=== PATIENT | male | born 1955 ===

== ENCOUNTER 2017-03-25 10:43 | Emergency (ER) | payer OTHER ==
[2017-03-25 11:56] LABS: BASOPHILS % 0.4 (0.0-1.5); EOSINOPHILS % 2.8 % (0.0-6.8); MEAN CORPUSCULAR HEMOGLOBIN 30.8 pg (28.0-34.0); MEAN CORPUSCULAR VOLUME 91.5 fl (80.0-100.0); MONOCYTES % 2.8 % (0.0-11.0); NEUTROPHILS # 11.6 # k/uL (1.4-7.7)
[2017-03-25 12:12] LABS: eGFR (African) > 60; eGFR (Non-African) > 60
--- NOTE | 2017-03-25 12:16 | ED Physician Documentation ---
Upper Respiratory Symptoms - HISTORIAN Historian: patient - HPI Chief Complaint: Cough/ Upper Respiratory Onset: days ago Associated Symptoms: fever, chills, runny nose, productive cough, shortness of breath (when lying down) Further Comments: yes (61 year old male patient presents with complaint of cough and increasing difficulty breathing. Patient reports symptoms started 3 days and have become worse. Reports exposure to influenza.) - ROS CONST/EYES: weakness CVS/RESP: shortness of breath. denies: chest pain, palpitations LYMPH: denies: leg swelling, rash, ankle swelling GI/: none NEURO/PSYCH: denies: fainting, dizziness, confusion MS/SKIN: denies: joint pain, muscle aches, rash - PAST HX Lung Disease: none PE Risk Factors: hypertension, other (HLD, gout, BPH) Allergies/Adverse Reactions: Allergies Allergy/AdvReac Type Severity Reaction Status Date / Time No Known Allergies Allergy Verified 03/25/17 13:03 Home Medications: Ambulatory Orders Medication Instructions Recorded Albuterol Sulfate [Proair HFA] 1 inh IH Q4H PRN #1 hfa.aer.ad 03/25/17 Azithromycin [Zithromax] 250 mg PO DAILY #6 tablet 03/25/17 Finasteride [Proscar] 5 mg PO DAILY 03/25/17 Pravastatin Sodium [Pravastatin 40 mg PO DAILY 03/25/17 Sodium] predniSONE [Deltasone] 30 mg PO DAILY #12 tablet 03/25/17 - SOCIAL HX Smoking History: quit greater than 1 year - FAMILY HX Family History: denies: none - VITAL SIGNS Vital Signs: Vital Signs Temp Pulse Resp BP Pulse Ox 97.6 F 76 20 122/87 96 03/25/17 11:00 03/25/17 13:00 03/25/17 11:00 03/25/17 11:00 03/25/17 13:00 - REVIEWED ASSESSMENTS Nursing Assessment Reviewed: Yes Vitals Reviewed: Yes Progress - Progress Progress: 1210 Reviewed chest xray results with patient and recommendations by Radiologist for CT. Patient agrees to plan of care. reviewed CT result with patient, reassurance given and questions answered. Will discharge on antibiotic due to elevated WBC count and productive cough with yellow sputum. Short burst of prednisone and prn proair. - EKG/XRAY/CT EKG: rhythm (SR, rate 67, no acute changes) ED Results Lab/Radiology - Lab Results Lab Results: Lab Results 03/25/17 03/25/17 03/25/17 11:50 11:50 11:50 WBC RBC Hgb Hct MCV MCH MCHC RDW Plt Count Neut % (Auto) Lymph % (Auto) Davison % (Auto) Eos % (Auto) Baso % (Auto) Neut # (Auto) Lymph # (Auto) Davison # (Auto) Eos # (Auto) Baso # (Auto) Reactive Lymphs % Reactive Lymphs # PT 10.4 Seconds Seconds (9.4-11.6) INR 0.99 (0.9-1.2) APTT 22.7 Seconds L Seconds (24.5-32.8) Sodium 138 mmol/L mmol/L (136-145) Potassium 4.2 mmol/L mmol/L (3.5-5.1) Chloride 100 mmol/L mmol/L (98-107) Carbon Dioxide 30 mmol/L mmol/L (22-30) BUN 18 mg/dL mg/dL (9-20) Creatinine 0.90 mg/dL mg/dL (0.66-1.25) Est GFR ( Amer) > 60 (60 - ) Est GFR (Non-Af Amer) > 60 (60 - ) Glucose 95 mg/dL mg/dL (74-106) Calcium 8.8 mg/dL mg/dL (8.4-10.2) Total Bilirubin 0.4 mg/dL mg/dL (0.2-1.3) AST 25 U/L U/L (15-46) ALT 41 U/L U/L (13-69) Alkaline Phosphatase 101 U/L U/L (38-126) Total Protein 7.4 g/dL g/dL (6.3-8.2) Albumin 3.8 g/dL g/dL (3.5-5.0) Influenza Type A Ag Negative (NEGATIVE) Influenza Type B Ag Negative (NEGATIVE) 03/25/17 11:50 WBC 14.00 K/ul H K/ul (4.00-12.00) RBC 4.88 M/ul M/ul (3.90-5.20) Hgb 15.0 g/dL g/dL (12.0-18.0) Hct 44.7 % % (37.0-53.0) MCV 91.5 fl fl (80.0-100.0) MCH 30.8 pg pg (28.0-34.0) MCHC 33.7 g/dL g/dL (30.0-36.0) RDW 12.6 % % (11.3-14.3) Plt Count 205 K/mm3 K/mm3 (130-400) Neut % (Auto) 83.1 % H % (39.0-79.0) Lymph % (Auto) 10.3 % L % (16.0-50.0) Davison % (Auto) 2.8 % % (0.0-11.0) Eos % (Auto) 2.8 % % (0.0-6.8) Baso % (Auto) 0.4 (0.0-1.5) Neut # (Auto) 11.6 # k/uL H # k/uL (1.4-7.7) Lymph # (Auto) 1.4 # k/uL # k/uL (0.6-4.0) Davison # (Auto) 0.4 # k/uL # k/uL (0.0-0.9) Eos # (Auto) 0.4 # k/uL # k/uL (0.0-0.6) Baso # (Auto) 0.1 # k/uL # k/uL (0.0-0.5) Reactive Lymphs % 0.6 % % (0.0-5.0) Reactive Lymphs # 0.1 # k/uL # k/uL (0.0-0.8) PT INR APTT Sodium Potassium Chloride Carbon Dioxide BUN Creatinine Est GFR ( Amer) Est GFR (Non-Af Amer) Glucose Calcium Total Bilirubin AST ALT Alkaline Phosphatase Total Protein Albumin Influenza Type A Ag Influenza Type B Ag - Radiology Radiology Impressions: Chest 2 views History: Cough and wheezing Findings: Right mid mediastinal convexity observed on the PA film suggests ascending aortic aneurysm versus tortuosity. A mass lesion cannot be excluded. There is no confluent infiltrate or pleural effusion. Heart size and pulmonary vascularity are normal. Impression: A right sided mediastinal convexity. Differential includes aortic aneurysm, aortic tortuosity, and mass. Recommend STANDARD contrast enhanced chest CT. Electronically signed on Mar 25, 2017 12:05:26 PM A/C TECHNICIAN by: Isma Mehard Computed tomography of the chest with contrast History: Abnormal mediastinum on chest radiograph. Cough and wheezing. Findings: Transverse chest sections are obtained after 90 mL intravenous omnipaque 350. The right pulmonary artery is slightly enlarged. The thoracic aorta is normal. Calcified subcarinal granulomas are observed. Heart size is normal. There is no evidence of central pulmonary embolism. The lungs are clear. No pleural effusions are observed. There is no evidence of mass or lymphadenopathy. Upper abdomen sections reveal a few liver cysts. Impression: 1. Mildly enlarged right pulmonary artery and calcified subcarinal granulomas. Otherwise normal mediastinum. 2. Liver cysts. 3. Clear lungs. - Orders Orders: ED Orders Category Date Time Status Continuous EKG monitoring Q30M Care 03/25/17 11:43 Active Continuous Pulse Oximetry Q30M Care 03/25/17 11:[address] IV Lock 1T Care 03/25/17 11:43 Active CHEST 2 VIEW [CHEST P.A.&LAT 2 VIEWS] [RAD] Stat Exams 03/25/[address] CHEST W/ CONTRAST Stat Exams 03/25/17 Ordered BLOOD CULTURE Stat Lab 03/25/17 Ordered CBC/PLATELET/DIFF Stat Lab 03/25/17 11:50 Completed CMP Stat Lab 03/25/17 11:50 Completed INFLUENZA A&B Stat Lab 03/25/17 11:50 Completed PT-INR Stat Lab 03/25/17 11:50 Completed PTT Stat Lab 03/25/17 11:50 Completed UA W/MICRO IF INDICATED Stat Lab 03/25/17 12:53 Ordered Oxygen Daily Oxygen 03/25/17 11:45 Ordered EKG WITH COMPARISON Stat Ther 03/25/17 11:43 Ordered Upper Respiratory Symptoms - EXAM General Appearance: mild distress EENT: eyes nml inspection, nml ENT inspection, lids & conjunct. nml, PERRL, ear nml, nose nml, pharynx nml, airway nml Respiratory: no resp. distress, no pain on inspiration, speaks full sentences, wheezes (faint expiratory wheeze), no pleuritic chest pain Abdomen: non-tender, no organomegaly, nml bowel sounds, no distention CVS: reg rate & rhythm, heart sounds normal, equal pulses, no murmur, no gallop , PMI nml, no JVD, no friction rub, 24 Skin: color nml, no rash, warm,dry Extremities: non-tender, normal range of motion, no evidence of injury, no edema , J, TRAINING SPECIALIST Neuro/Psych: oriented x3, neuro intact, mood/affect nml, CN's nml as tested Discharge Clincal Impression: Wheezing, atypical bronchitis Prescriptions: Albuterol Sulfate [Proair HFA] 1 inh IH Q4H PRN #1 hfa.aer.ad PRN Reason: Wheezing Azithromycin [Zithromax] 250 mg PO DAILY #6 tablet predniSONE [Deltasone] 30 mg PO DAILY #12 tablet Referrals: Lambert Roger MD [Primary Care Provider] - 2 Days Additional Instructions: postal support employee your prescription at the pharmacy. postal support employee an over the counter decongestant such as dayquil. You may want to try Vicks rub on your chest and/or feet Increase your fluid intake Tylenol or Ibuprofen as needed for fever, pain and body aches. See your primary care doctor if your symptoms become worse or do not improve in the next 2-3 days. postal support employee your prescriptions and start them today. Condition: Stable Disposition: 01 HOME, SELF-CARE Decision to Admit: NO Decision Time: 13:07
[2017-03-25 13:42] VITALS: BP 124/81
--- NOTE | 2017-03-25 13:50 | Diagnostic Imaging Report ---
[facility] [address] [place] [facility].[address] [address] Report Submission Date: Mar 25, 2017 1:01:09 PM RESEARCH GEOLOGIST Patient Study Name: NANO ZUÑIGA Date: Mar 25, 2017 12:26:49 PM RESEARCH GEOLOGIST Modality Type: CT\SR Gender: M Description: CT CHEST W/ CONTRAST : 55 Institution: [facility] Physician: JEREMIAH MCDONOUGH (THAO) - ER Computed tomography of the chest with contrast History: Abnormal mediastinum on chest radiograph. Cough and wheezing. Findings: Transverse chest sections are obtained after 90 mL intravenous omnipaque 350. The right pulmonary artery is slightly enlarged. The thoracic aorta is normal. Calcified subcarinal granulomas are observed. Heart size is normal. There is no evidence of central pulmonary embolism. The lungs are clear. No pleural effusions are observed. There is no evidence of mass or lymphadenopathy. Upper abdomen sections reveal a few liver cysts. Impression: 1. Mildly enlarged right pulmonary artery and calcified subcarinal granulomas. Otherwise normal mediastinum. 2. Liver cysts. 3. Clear lungs. Electronically signed on Mar 25, 2017 1:01:09 PM RESEARCH GEOLOGIST by: Isma KESSLER
--- NOTE | 2017-03-25 13:51 | Diagnostic Imaging Report ---
[facility] [address] [address] Report Submission Date: Mar 25, 2017 12:05:26 PM INTERMODAL TRUCK DRIVER Patient Study Name: NANO ZUÑIGA Date: Mar 25, 2017 11:51:37 AM INTERMODAL TRUCK DRIVER Modality Type: CR Gender: M Description: CHEST : 55 Institution: [facility] Physician: JEREMIAH MCDONOUGH (DRAWING KILN OPERATOR) - ER Chest 2 views History: Cough and wheezing Findings: Right mid mediastinal convexity observed on the PA film suggests ascending aortic aneurysm versus tortuosity. A mass lesion cannot be excluded. There is no confluent infiltrate or pleural effusion. Heart size and pulmonary vascularity are normal. Impression: A right sided mediastinal convexity. Differential includes aortic aneurysm, aortic tortuosity, and mass. Recommend STANDARD contrast enhanced chest CT. Electronically signed on Mar 25, 2017 12:05:26 PM INTERMODAL TRUCK DRIVER by: Isma KESSLER
[2017-03-26 07:25] LABS: APPEARANCE,URINE CLEAR (CLEAR); COLOR,URINE YELLOW (YELLOW); OCCULT BLOOD,URINE TRACE-LYSED (NEGATIVE); PH URINE 5.5 (5.0 - 8.0)
[2017-03-26 07:26] LABS: UROBILINOGEN URINE 0.2 Eu (0.2-1.0)
== END 2017-03-25 13:19 | disposition home or self-care (01) ==
LOC: ED 10:43
DX: J40 Bronchitis, not specified as acute or chronic (principal); R06.2 Wheezing
CPT/HCPCS: 36415; 71020; 71260; 80053; 81002; 85025; 85610; 85730; 87040; 87400; 99283; Q9967; S1016